=== PATIENT | female | born 1960 | race Caucasian/White ===

== ENCOUNTER 2019-06-21 16:16 | Inpatient (IN) | payer OTHER ==
[~2019-06-21] VITALS: Ht 167.6 cm; Wt 74.8 kg
[2019-06-21 16:00] VITALS: BP 145/93
--- NOTE | 2019-06-21 16:28 | NUR ---
MS RN OPENING NOTES RECEIVED PATIENT VIA NICOLASA ACCOMPANIED BY 2 EMT AND SIGNIFICANT OTHER DIRECT ADMIT TO UNIT FROM [facility] DUE TO C/O SOB AND CHEST PAIN FOR THE PAST 4 DAYS. ALERT AND ORIENTED X4. ON 02 @ 2L/MIN VIA DE ELINOR WELL. V/S FOLLOWS 145/93; HR:93; RR: 21; T:98.3 SPO2 OF 98%. ORIENTED PATIENT TO ROOM, CALL LIGHT. PATIENT WAS SEEN BY DR. CROWE AT BEDSIDE AND DISCUSSED ABOUT POSSIBLE PARACENTESIS WHICH PATIENT HAD IN THE PAST STATED BY PATIENT AND CONSENTS IF IT NEEDS TO BE DONE AGAIN. AMBULATORY WITH STEADY GAIT BUT WITH WEAKNESS OBSERVED. NO N/V. RIGHT AC SL #20 INTACT AND PATENT. ALL BELONGINGS ACCOUNTED FOR. BED IN LOWEST POSITION, LOCKED. CALL LIGHT WITHIN REACH.
[2019-06-21] MEDS ORDERED: ACETAMINOPHEN 325 MG TABLET PO PRN (17:00)
[2019-06-21] MEDS ORDERED: ONDANSETRON HCL/PF 4 MG/2 ML VIAL IVP PRN (17:00)
[2019-06-21] MEDS ORDERED: MAG HYDROX/AL HYDROX/SIMETH 30 ML UDC PO PRN (17:00)
[2019-06-21] MEDS ORDERED: MAGNESIUM HYDROXIDE 30 ML UDC PO PRN (17:00)
[2019-06-21] MEDS ORDERED: Z GUARD REMEDY 2 OZ OINT TP PRN (17:00)
[2019-06-21] MEDS: HYDROCODONE/APAP 5/325MG 1 EACH TABLET PO PRN ×2 (18:25→22:28)
--- NOTE | 2019-06-21 18:59 | NUR ---
MS RN CLOSING NOTES PATIENT RESTING COMFORTABLY IN BED WATCHING TV. DENIES ANY C/O PAIN NOR DISCOMFORT AT THIS TIME. DENIES ANY C/O N/V, SOB NOR CHEST PAIN. HOB ELEVATED. ABLE TO VERBALIZE NEEDS. CALL LIGHT WITHIN REACH. IN NO APPARENT DISTRESS.
[2019-06-21 19:00] LABS: BASOPHILS % (AUTO) 0.8 % (0.0-2.0); EOSINOPHILS % (AUTO) 3.8 % (0.0-6.0); HEMATOCRIT 33 % (33-45); HEMOGLOBIN 10.7 g/dL (11.5-14.8); LYMPHOCYTES # (AUTO) 1.2 /CMM (0.8-4.8); LYMPHOCYTES % (AUTO) 49.6 % (20.0-44.0); MEAN CORPUSCULAR HGB CONC 33 g/dl (31.0-36.0); MEAN CORPUSCULAR VOLUME 98 fL (82-100); MONOCYTES # (AUTO) 0.2 /CMM (0.1-1.30); MONOCYTES % (AUTO) 9.6 % (2.0-12.0); NEUTROPHILS # (AUTO) 0.9 /CMM (1.8-8.9); NEUTROPHILS % (AUTO) 36.2 % (43.0-81.0); RED BLOOD CELL COUNT(AUTO) 3.34 MIL/uL (4.0-5.2); WHITE BLOOD COUNT (AUTO) 2.4 K/uL (4.3-11.0)
[2019-06-21 19:02] LABS: PLATELET COUNT (AUTO) 33 /CMM (150-450)
--- NOTE | 2019-06-21 19:05 | NUR ---
NETWORK SUPPORT MANAGER OPENING NOTES RECEIVED PATIENT IN BED AWAKE ALERT AND ORIENTED X4, RESPIRATIONS EVEN AND UNLABORED WITH EQUAL RISE AND FALL OF CHEST ON 3L VIA NC, NO SOB PRESENT, ON MOTOR TEACHER SR 90,IV SITE TO RIGHT AC#20G INTACT AND PATENT NO REDNESS, NO INFILTRATION PRESENT, ORIENTED TO STAFF AND CALL LIGHT AND KEPT WITHIN REACH, SAFETY PRECAUTIONS IN PLACE ,LOW BED AND LOCKED, ALL NEEDS ATTENDED AT THIS TIME WILL CONTINUE TO MONITOR AND ATTEND TO NEEDS.
[2019-06-21 19:21] LABS: CALCIUM, SERUM 7.2 mg/dL (8.5-10.1); CREATININE 0.8 mg/dL (0.6-1.3); MAGNESIUM 1.3 mg/dL (1.8-2.4); PHOSPHORUS 2.6 mg/dL (2.5-4.9); POTASSIUM 3.6 mmol/L (3.5-5.1)
--- NOTE | 2019-06-21 19:33 | NUR ---
MS RN NOTES PATIENT REFUSED BODY ASSESSMENT AND PICTURES TO BE TAKEN.
[2019-06-21 19:34] LABS: BAND % (MANUAL) 6 % (0.0-5.0); EOSINOPHILS % (MANUAL) 4 % (0-4); LYMPHOCYTES % (MANUAL) 45 % (16-48); MONOCYTES % (MANUAL) 12 % (0-11.0); NEUTROPHILS % (MANUAL) 33 (42-76)
[2019-06-21] MEDS ORDERED: SECU150S SQ (19:37)
[2019-06-21] MEDS ORDERED: LACT10SO PO (19:40)
--- NOTE | 2019-06-21 19:56 | NUR ---
PAWN SHOP KEEPER NOTES MADE AWARE OF LABS RESULTED AND CRITICAL LAB VALUE PLT OF 33 AND MAG 1.3L NO FURTHER ORDERS AT THIS TIME, PATIENT MADE AWARE, PER PATIENT HAS A HISTORY OF LOW PLT LEVELS.
[2019-06-21 20:00] VITALS: BP 123/72
[2019-06-21] MEDS ORDERED: LACTULOSE 10 G/15 ML UDC (PYXIS) PO PRN (21:00)
--- NOTE | 2019-06-21 22:28 | NUR ---
COLLECTION DEVELOPMENT LIBRARIAN NOTES PATIENT COMPLAINT OF PAIN TO ABDOMEN AREA AND LEFT SIDE 8/10 ACHING REQUESTING FOR NORCO , PRN GIVEN ORDERED WILL CONTINUE TO MONITOR FOR EFFECTIVENESS.
[2019-06-22] VITALS: BP 114/80
[2019-06-22 04:00] VITALS: BP 147/85
[2019-06-22 05:00] VITALS: BP 147/85
[2019-06-22] MEDS: HYDROCODONE/APAP 5/325MG 1 EACH TABLET PO PRN ×3 (05:56→20:56)
--- NOTE | 2019-06-22 05:57 | NUR ---
BUSINESS JOB TITLES NOTES PATIENT COMPLAINT OF PAIN TO ABDOMEN AREA AND LEFT SIDE WHEN AMBULATING WELL 04/29 ACHING REQUESTING FOR NORCO , PRN GIVEN ORDERED WILL CONTINUE TO MONITOR FOR EFFECTIVENESS.
--- NOTE | 2019-06-22 06:39 | NUR ---
DISTILLERY MANAGER CLOSING NOTES PATIENT IN BED AWAKE ALERT AND ORIENTED X4, RESPIRATIONS EVEN AND UNLABORED WITH EQUAL RISE AND FALL OF CHEST ON 3L VIA NC, NO SOB PRESENT, ON OCEAN EXPORT AGENT SR 83,IV SITE TO RIGHT AC#20G INTACT AND PATENT NO REDNESS, NO INFILTRATION PRESENT, CALL LIGHT KEPT WITHIN REACH, SAFETY PRECAUTIONS IN PLACE ,LOW BED AND LOCKED, ALL NEEDS ATTENDED AT THIS TIME WILL CONTINUE TO MONITOR AND ATTEND TO NEEDS AND ENDORSE TO NEXT SHIFT.
[2019-06-22 07:26] LABS: HEMATOCRIT 30 % (33-45); HEMOGLOBIN 9.9 g/dL (11.5-14.8); LYMPHOCYTES # (AUTO) 1.2 /CMM (0.8-4.8); LYMPHOCYTES % (AUTO) 55.8 % (20.0-44.0); MEAN CORPUSCULAR HGB CONC 33 g/dl (31.0-36.0); MEAN CORPUSCULAR VOLUME 98 fL (82-100); MONOCYTES # (AUTO) 0.2 /CMM (0.1-1.30); MONOCYTES % (AUTO) 9.7 % (2.0-12.0); NEUTROPHILS # (AUTO) 0.6 /CMM (1.8-8.9); NEUTROPHILS % (AUTO) 27.5 % (43.0-81.0); RED BLOOD CELL COUNT(AUTO) 3.08 MIL/uL (4.0-5.2); WHITE BLOOD COUNT (AUTO) 2.1 K/uL (4.3-11.0)
[2019-06-22 07:38] LABS: CALCIUM, SERUM 7.1 mg/dL (8.5-10.1); CREATININE 0.8 mg/dL (0.6-1.3); MAGNESIUM 1.4 mg/dL (1.8-2.4); PHOSPHORUS 2.6 mg/dL (2.5-4.9); PLATELET COUNT (AUTO) 29 /CMM (150-450); POTASSIUM 3.5 mmol/L (3.5-5.1)
--- NOTE | 2019-06-22 07:46 | NUR ---
FILTER CLOTH MAKER NOTES RECEIVED CALL FROM LAB C/O DEISY, RELAYED PLT 29 LOW AND MAG 1.[address] CROWE WITH NO NEW ORDER AT THIS TIME
--- NOTE | 2019-06-22 07:49 | NUR ---
INGREDIENT MIXER OPENING NOTES RECEIVED PATIENT IN BED ALERT AND AWAKE ORIENTED X4. PATIENT STATES DID NOT SLEEP WELL LAST NIGHT. AMBULATORY WITH STEADY GAIT. PATIENT RECEIVED PAIN MED GIVEN BY NOC SHIFT AND EFFECTIVE PER PATIENT. BED IN LOWEST POSITION, LOCKED. CALL LIGHT WITHIN REACH. ABLE TO VERBALIZE NEEDS.
[2019-06-22 08:00] VITALS: BP 142/86
--- NOTE | 2019-06-22 08:05 | NUR ---
CUTTING INSPECTOR NOTES PATIENT SEEN BY DR. CROWE. PER MD, PATIENT CAN EAT PRIOR TO PARACENTESIS AND WITH ORDER FOR RESTORIL 15 MG PRN FOR INSOMNIA NOTED AND CARRIED OUT.
[2019-06-22 09:06] LABS: EOSINOPHILS % (MANUAL) 8 % (0-4); LYMPHOCYTES % (MANUAL) 62 % (16-48); MONOCYTES % (MANUAL) 6 % (0-11.0); NEUTROPHILS % (MANUAL) 24 (42-76)
--- NOTE | 2019-06-22 11:07 | NUR ---
EMBEDDED SYSTEMS SOFTWARE ENGINEER NOTES PATIENT OFF UNIT FOR CT SCAN
[2019-06-22] MEDS: Magnesium 1GM/D5W 100ML PREMIX 100 ML IV SCH ×4 (11:36→16:18)
[2019-06-22] MEDS ORDERED: FUROSEMIDE 40 MG/4 ML VIAL IV ONE (12:30)
[2019-06-22 16:00] VITALS: BP 122/83
--- NOTE | 2019-06-22 18:51 | NUR ---
MS RN CLOSING NOTES PATIENT IN BED ALERT AND AWAKE ORIENTED X4 WATCHING TV WITH SPOUSE AT BEDSIDE. DENIES ANY C/O PAIN NOR DISCOMFORT AT THIS TIME. NO SOB. AMBULATORY WITH STEADY GAIT. LT HAND SL # 22 INTACT AND PATENT. ABD REMIANS DISTENDED, SOFT AND NON-TENDER. BED IN LOWEST POSITION, LOCKED. CALL LIGHT WITHIN REACH. IN NO APPARENT DISTRESS..
--- NOTE | 2019-06-22 19:00 | NUR ---
MS RN OPENING NOTES NOTES Received patient A/O x4, awake, on Adair's position on bed. On O2 inhalation via NC @ 2LPM, saturating well, no SOB/respiratory distress noted. With significant others at bedside. Patient denies any discomfort at this time. Discussed POC, patient claimed she will just call for her bedtime and pain reliever pills. Kept on bed clean, dry and comfortable. Call light within easy reach. On fall precautions. Will continue to monitor accordingly.
[2019-06-22 20:00] VITALS: BP 142/74
[2019-06-22] MEDS: TEMAZEPAM 15 MG CAPSULE PO PRN (22:44)
[2019-06-23] VITALS (13 sets, daily range): BP systolic 102–142; BP diastolic 52–88
--- NOTE | 2019-06-23 06:28 | NUR ---
MS RN CLOSING NOTES Patient asleep, easily awaken. No new complaints made, no new unusualities noted. . All nursing needs attended. Due meds given as ordered. Kept on bed clean, dry and comfortable. Call light within easy reach. Endorsed to the next shift.
[2019-06-23 06:30] LABS: BASOPHILS % (AUTO) 0.7 % (0.0-2.0); EOSINOPHILS % (AUTO) 5.1 % (0.0-6.0); HEMATOCRIT 29 % (33-45); HEMOGLOBIN 9.6 g/dL (11.5-14.8); LYMPHOCYTES # (AUTO) 1.2 /CMM (0.8-4.8); LYMPHOCYTES % (AUTO) 54.4 % (20.0-44.0); MEAN CORPUSCULAR HGB CONC 33 g/dl (31.0-36.0); MEAN CORPUSCULAR VOLUME 97 fL (82-100); MONOCYTES # (AUTO) 0.2 /CMM (0.1-1.30); MONOCYTES % (AUTO) 10.5 % (2.0-12.0); NEUTROPHILS # (AUTO) 0.6 /CMM (1.8-8.9); NEUTROPHILS % (AUTO) 29.3 % (43.0-81.0); RED BLOOD CELL COUNT(AUTO) 2.96 MIL/uL (4.0-5.2); WHITE BLOOD COUNT (AUTO) 2.1 K/uL (4.3-11.0)
[2019-06-23 06:45] LABS: CALCIUM, SERUM 7.4 mg/dL (8.5-10.1); CREATININE 0.7 mg/dL (0.6-1.3); POTASSIUM 3.2 mmol/L (3.5-5.1)
[2019-06-23 06:52] LABS: PLATELET COUNT (AUTO) 28 /CMM (150-450)
[2019-06-23] MEDS ORDERED: POTASSIUM CHLORIDE 20 MEQ TAB.PRT.SR PO ONE (08:30)
[2019-06-23 08:38] LABS: EOSINOPHILS % (MANUAL) 4 % (0-4); LYMPHOCYTES % (MANUAL) 60 % (16-48); MONOCYTES % (MANUAL) 8 % (0-11.0); NEUTROPHILS % (MANUAL) 28 (42-76)
[2019-06-23] MEDS: LACTULOSE 10 G/15 ML UDC (PYXIS) PO SCH ×2 (09:22→18:32)
[2019-06-23] MEDS: HYDROCODONE/APAP 5/325MG 1 EACH TABLET PO PRN ×2 (10:55→20:40)
--- NOTE | 2019-06-23 15:08 | NUR ---
LOW PLATLET COUNT, US GUIDED THORACENTESIS TEMPORARILY ON HOLD UNTIL PATIENT RECEIVES TRANSFUSION. RN WILL INFORM.
--- NOTE | 2019-06-23 19:07 | NUR ---
patient resting in bed, awake A/o x4 . Platelets 2 units transfused , VS are stable and patient on room air tolerating well. All needs attended. IV assess remains intact and patent, flushing well. Patient ambulatory, steady gait. Will endorse to next shift for MARIMAR.
[2019-06-23] MEDS ORDERED: PHYTONADIONE INJ 10 MG/1 ML AMPUL SQ ONE (19:30)
--- NOTE | 2019-06-23 19:30 | NUR ---
MS RN OPENING NOTE RECEIVED PATIENT IN BED. A/OX4. TOLERATING ROOM AIR. RESPIRATIONS ARE EVEN AND UNLABORED. NO SOB NOTED. DENIES PAIN AT THIS TIME. IN NO APPARENT DISTRESS. IV ACCESS IN LEFT HANG #22 PATENT AND SALINE LOCKED. BED IS LOW AND LOCKED, SIDE RAILS UP, HOB ELEVATED 80 DEGREES. CALL LIGHT WITHIN REACH. FAMILY AT THE BEDSIDE. WILL CONTINUE TO MONITOR.
--- NOTE | 2019-06-23 20:40 | NUR ---
MS RN NOTE ADMINISTERED PRN NORCO 5/325 FOR PAIN 8/10 IN LEFT AND RIGHT POSTERIOR BACK/SIDE. WILL CONTINUE TO MONITOR.
[2019-06-23] MEDS: TEMAZEPAM 15 MG CAPSULE PO PRN (23:01)
--- NOTE | 2019-06-23 23:01 | NUR ---
MS RN NOTE ADMINISTERED PRN RESTORIL 15MD PER PATIENTS REQUEST FOR SLEEP. WILL CONTINUE TO MONITOR.
--- NOTE | 2019-06-24 06:32 | NUR ---
MS RN CLOSING NOTE PATIENT IN BED. A/OX4. REMAINS TOLERATING ROOM AIR. RESPIRATIONS ARE EVEN AND UNLABORED. SOB THROUGHOUT SHIFT. TITRATED OFF O2, NOW STABLE ON RA. C/O PAIN AND ADMINISTERED PRN NORCO. NO APPARENT DISTRESS THROUGHOUT. IV ACCESS MAINTAINED IN LEFT HANG #22 PATENT AND SALINE LOCKED. BED IS LOW AND LOCKED, SIDE RAILS UP, HOB ELEVATED 20 DEGREES. CALL LIGHT WITHIN REACH. WILL ENDORSE TO NEXT SHIFT FOR MARIMAR.
--- NOTE | 2019-06-24 07:03 | NUR ---
MS RN NOTES PATIENT IN BED ALERT ORIENTED X 4. NO ACUTE DISTRESS NOTED. BREATHING UNLABORED. NO SOB NOTED. IV ACCESS PATENT AND INTACT. NO REDNESS OR SWELLING NOTED. SAFETY MEASURES IN PLACE. CALL LIGHT WITHIN REACH. WILL CONTINUE TO MONITOR ACCORDINGLY.
[2019-06-24 07:47] LABS: BASOPHILS % (AUTO) 0.8 % (0.0-2.0); EOSINOPHILS % (AUTO) 4.5 % (0.0-6.0); HEMATOCRIT 28 % (33-45); HEMOGLOBIN 9.2 g/dL (11.5-14.8); LYMPHOCYTES # (AUTO) 0.8 /CMM (0.8-4.8); LYMPHOCYTES % (AUTO) 46.7 % (20.0-44.0); MEAN CORPUSCULAR HGB CONC 32 g/dl (31.0-36.0); MEAN CORPUSCULAR VOLUME 98 fL (82-100); MONOCYTES # (AUTO) 0.2 /CMM (0.1-1.30); MONOCYTES % (AUTO) 12.3 % (2.0-12.0); NEUTROPHILS # (AUTO) 0.6 /CMM (1.8-8.9); NEUTROPHILS % (AUTO) 35.7 % (43.0-81.0)
[2019-06-24 07:58] LABS: PLATELET COUNT (AUTO) 41 /CMM (150-450); WHITE BLOOD COUNT (AUTO) 1.8 K/uL (4.3-11.0)
[2019-06-24 08:00] VITALS: BP 109/67
--- NOTE | 2019-06-24 08:03 | NUR ---
MS RN NOTES LABORATORY TEST RESULTED INCLUDING WBC 1.8 AND PLATELET 41, DR CARLOS CROWE PRESENT AT THE FLOOR MADE AWARE, NO NEW ORDERS MADE AT THIS TIME.
[2019-06-24 08:05] LABS: ALBUMIN 2.1 g/dL (3.4-5.0); BILIRUBIN,DIRECT 1.1 mg/dL (0.0-0.2)
[2019-06-24 08:19] LABS: BILIRUBIN,TOTAL 1.9 mg/dL (0.2-1.0)
--- NOTE | 2019-06-24 08:27 | NUR ---
MS RN NOTES PATIENT SEEN AND EVALUATED BY DR CARLOS CROWE WITH NEW ORDERS FOR LASIX 20MG IV PUSH X1 DOSE, NOTED AND CARRIED OUT.
[2019-06-24 08:31] LABS: THYROID STIMULATING HORMONE 1.513 uIU/mL (0.358-3.74)
[2019-06-24 08:56] LABS: EOSINOPHILS % (MANUAL) 1 % (0-4); LYMPHOCYTES % (MANUAL) 47 % (16-48); MONOCYTES % (MANUAL) 5 % (0-11.0); NEUTROPHILS % (MANUAL) 47 (42-76)
[2019-06-24] MEDS: LACTULOSE 10 G/15 ML UDC (PYXIS) PO SCH ×2 (09:00→17:50)
[2019-06-24] MEDS ORDERED: FUROSEMIDE 40 MG/4 ML VIAL IV ONE (09:00)
[2019-06-24] MEDS: FOLIC ACID 1 MG TABLET PO SCH (09:00)
--- NOTE | 2019-06-24 09:00 | NUR ---
AT 9 AM PLT COUNT 41 , I SPOKE WITH THE CHARGE NURSE AND INFORMED HER THAT WE NEED AT LEAST 50 PLT, IN ORDER FOR THE PROCEDURE TO BE DONE, SHE WILL INFORM THE ORDERING MD
--- NOTE | 2019-06-24 10:00 | NUR ---
MS RN NOTES RECEIVED A CALL FROM RADIOLOGY THAT THORACENTESIS WILL NOT BE DONE TODAY DUE TO PLATELET LESS THAN 50, NOTIFIED DR CARLOS CROWE MADE AWARE, NO NEW ORDERS MADE AT THIS TIME.
--- NOTE | 2019-06-24 10:51 | NUR ---
MS RN NOTES CLARIFIED DIET ORDERS WITH CARLOS ABRAHAM, WITH NEW ORDERS TO DISCONTINUE NPO RESUME REGULAR DIET , NOTED AND CARRIED OUT.
[2019-06-24] MEDS: HYDROCODONE/APAP 5/325MG 1 EACH TABLET PO PRN ×2 (12:39→21:32)
[2019-06-24 16:00] VITALS: BP 132/78
--- NOTE | 2019-06-24 19:01 | NUR ---
MS RN NOTES PATIENT IN BED ALERT ORIENTED X 4. NO ACUTE DISTRESS NOTED. BREATHING UNLABORED. NO SOB NOTED. IV ACCESS PATENT AND INTACT, NO REDNESS OR SWELLING NOTED. DUE MEDICATIONS GIVEN, NO ASE NOTED. NEEDS ATTENDED AND ANTICIPATED. SAFETY MEASURES IN PLACE. CALL LIGHT WITHIN REACH. WILL ENDORSE TO NIGHT NURSE FOR CONTINUITY OF CARE.
--- NOTE | 2019-06-24 19:15 | NUR ---
MS RN NOTES RECEIVED LAYING COMFORTABLY ON BED,A/O X4,DENIES PAIN DISCOMFORTS,ABDOMEN DISTENDED,SALINE LOCK LEFT HAND #22 INTACT AND PATENT.VERBALIZED NEEDS. AT BEDSIDE.CALL LIGHT IN REACH,NEEDS ANTICIPATED.
[2019-06-24 20:00] VITALS: BP 125/72
--- NOTE | 2019-06-24 21:32 | NUR ---
MS RN NOTES PAIN MANAGEMENT C/O RIGHT UPPER QUADRANT PAIN 6/10 ON PAIN SCALE,NORCO 5/325MG,1 TAB PO GIVEN ORDERED FOR MODERATE PAIN
--- NOTE | 2019-06-24 21:33 | NUR ---
MS RN NOTES PATIENT CLAIMED,SHE ONLY GOT TWICE SINCE SHE WAS HERE,LACTULOSE 10GM PO GIVEN PER PATIENT REQUEST.WILL MONITOR FOR BM
[2019-06-24] MEDS: TEMAZEPAM 15 MG CAPSULE PO PRN (22:32)
--- NOTE | 2019-06-24 22:32 | NUR ---
MS RN NOTES C/O INSOMNIA,RESTORIL 15MG PO PER PATIENT REQUEST.
--- NOTE | 2019-06-25 06:29 | NUR ---
MS RN NOTES SLEEP WELL AT NIGHT WITH RESTORIL.PAIN MANAGEMENT EFFECTIVE.ABDOMEN REMAINS DISTENDED.NO SOB THRU OUT SHIFT.O2 SAT WITH IN NORMAL LIMITS.WILL ENDORSE TO DAY NURSE FOR MARIMAR
[2019-06-25 06:32] LABS: BASOPHILS % (AUTO) 0.7 % (0.0-2.0); HEMATOCRIT 29 % (33-45); HEMOGLOBIN 9.5 g/dL (11.5-14.8); LYMPHOCYTES # (AUTO) 1.2 /CMM (0.8-4.8); LYMPHOCYTES % (AUTO) 51.4 % (20.0-44.0); MEAN CORPUSCULAR HGB CONC 33 g/dl (31.0-36.0); MEAN CORPUSCULAR VOLUME 97 fL (82-100); MONOCYTES # (AUTO) 0.3 /CMM (0.1-1.30); MONOCYTES % (AUTO) 13.1 % (2.0-12.0); NEUTROPHILS # (AUTO) 0.7 /CMM (1.8-8.9); NEUTROPHILS % (AUTO) 30.8 % (43.0-81.0); RED BLOOD CELL COUNT(AUTO) 2.96 MIL/uL (4.0-5.2); WHITE BLOOD COUNT (AUTO) 2.3 K/uL (4.3-11.0)
[2019-06-25 06:54] LABS: PLATELET COUNT (AUTO) 42 /CMM (150-450)
--- NOTE | 2019-06-25 07:49 | NUR ---
ADDENDUM: DR CROWE AWARE OF LABORATORY RESULTS FROM TODAY INCLUDING PLATELET.
--- NOTE | 2019-06-25 07:49 | NUR ---
MS RN NOTES PATIENT SEEN AND EVALUATED BY DR CARLOS CROWE WITH NEW ORDERS MADE FOR MAGNESIUM CITRATE 296ML PO X 1 DOSE , NOTED AND CARRIED OUT.
[2019-06-25 08:00] VITALS: BP 129/76
[2019-06-25] MEDS ORDERED: MAGNESIUM CITRATE 296 ML BOTTLE PO ONE (08:00)
[2019-06-25 08:09] LABS: BAND % (MANUAL) 2 % (0.0-5.0); EOSINOPHILS % (MANUAL) 3 % (0-4); LYMPHOCYTES % (MANUAL) 55 % (16-48); MONOCYTES % (MANUAL) 9 % (0-11.0); NEUTROPHILS % (MANUAL) 31 (42-76)
[2019-06-25] MEDS: FOLIC ACID 1 MG TABLET PO SCH (09:25)
[2019-06-25] MEDS: LACTULOSE 10 G/15 ML UDC (PYXIS) PO SCH ×2 (09:25→17:42)
[2019-06-25] MEDS: HYDROCODONE/APAP 5/325MG 1 EACH TABLET PO PRN ×2 (09:27→20:06)
[2019-06-25 16:00] VITALS: BP 136/76
--- NOTE | 2019-06-25 18:53 | NUR ---
MS WU JOSEPH NOTES PATIENT IN BED ALERT ORIENTED X 4. NO ACUTE DISTRESS NOTED. BREATHING UNLABORED. NO SOB NOTED. IV ACCESS PATENT AND INTACT, NO REDNESS OR SWELLING NOTED. DUE MEDICATIONS GIVEN, NO ASE NOTED. NEEDS ATTENDED AND ANTICIPATED. SAFETY MEASURES IN PLACE. CALL LIGHT WITHIN REACH. WILL ENDORSE TO NIGHT NURSE FOR CONTINUITY OF CARE.
--- NOTE | 2019-06-25 19:40 | NUR ---
MS RN NOTES RECEIVED PATIENT IN BED ALERT ORIENTED X 4. NO ACUTE DISTRESS NOTED. BREATHING UNLABORED. NO SOB NOTED. IV ACCESS PATENT AND INTACT. NO REDNESS OR SWELLING NOTED. SAFETY MEASURES IN PLACE. CALL LIGHT WITHIN REACH. ALL NEEDS ANTICIPATED. WILL CONTINUE TO MONITOR ACCORDINGLY.
[2019-06-25 20:00] VITALS: BP 127/78
[2019-06-25] MEDS: TEMAZEPAM 15 MG CAPSULE PO PRN (22:06)
[2019-06-26] VITALS (8 sets, daily range): BP systolic 117–137; BP diastolic 70–79
--- NOTE | 2019-06-26 07:32 | NUR ---
RN NOTES ALL NEEDS ATTENDED. ABLE TO REST AND SLEPT AT INTERVALS, ENDORSED TO AM NURSE TO FOLLOW UP LAB RESULT, FOR CONTINUITY OF CARE.
--- NOTE | 2019-06-26 08:00 | NUR ---
m/s plant packer: notes consent obtained from pt re: us guided thoracentesis. pt verbalized understanding of procedure. will continue to monitor.
--- NOTE | 2019-06-26 08:09 | NUR ---
AT 8.OO AM INFORMED RN ABOUT LOW PLATELETS, WAITING FOR NEW LABS IN ORDER FOR THE THORACENTESIS TO BE DONE
[2019-06-26] MEDS: FOLIC ACID 1 MG TABLET PO SCH (08:36)
[2019-06-26] MEDS: LACTULOSE 10 G/15 ML UDC (PYXIS) PO SCH ×2 (08:38→17:01)
[2019-06-26 08:52] LABS: BASOPHILS % (AUTO) 1.1 % (0.0-2.0); EOSINOPHILS % (AUTO) 4.4 % (0.0-6.0); HEMATOCRIT 31 % (33-45); LYMPHOCYTES # (AUTO) 0.8 /CMM (0.8-4.8); LYMPHOCYTES % (AUTO) 38.3 % (20.0-44.0); MEAN CORPUSCULAR HGB CONC 33 g/dl (31.0-36.0); MEAN CORPUSCULAR VOLUME 98 fL (82-100); MONOCYTES # (AUTO) 0.3 /CMM (0.1-1.30); MONOCYTES % (AUTO) 14.7 % (2.0-12.0); NEUTROPHILS # (AUTO) 0.8 /CMM (1.8-8.9); NEUTROPHILS % (AUTO) 41.5 % (43.0-81.0); RED BLOOD CELL COUNT(AUTO) 3.13 MIL/uL (4.0-5.2)
[2019-06-26 08:57] LABS: PLATELET COUNT (AUTO) 39 /CMM (150-450)
--- NOTE | 2019-06-26 09:00 | NUR ---
m/s chucker: notes dr. singer notified and made aware of platelet=39, to go ahead with 2 units of platelet as ordered earlier. goldy ([employer]) aware and spoke to her radiologist and okay with thoracentesis after transfusion.
[2019-06-26 09:57] LABS: BAND % (MANUAL) 1 % (0.0-5.0); EOSINOPHILS % (MANUAL) 9 % (0-4); LYMPHOCYTES % (MANUAL) 29 % (16-48); MONOCYTES % (MANUAL) 11 % (0-11.0); NEUTROPHILS % (MANUAL) 50 (42-76)
[2019-06-26] MEDS: HYDROCODONE/APAP 5/325MG 1 EACH TABLET PO PRN (10:25)
--- NOTE | 2019-06-26 10:25 | NUR ---
m/s industrial psychology professor: notes c/o 8/10 lower back pain, medicated with norco 5/325mg po 1 tab as ordered. instructed to call for assistance. still awaiting for platelet units. pt aware.
--- NOTE | 2019-06-26 10:55 | NUR ---
m/s wash house supervisor: notes f/u made to blood bank, spoke to marisol and informed me that it's not there yet and will call me once they receive the platelet as stated.
--- NOTE | 2019-06-26 12:05 | NUR ---
m/s advanced manufacturing associate: notes f/u made to blood bank and informed me that they will f/u with again at [facility] and will call me once platelet is there. pt made aware.
--- NOTE | 2019-06-26 13:19 | NUR ---
m/s physics professor: notes 1 unit of platelet started at this time. vss, afebrile.
--- NOTE | 2019-06-26 13:34 | NUR ---
m/s forcer maker: notes no a/r noted after 15mins of transfusion. vss. afebrile. will monitor.
--- NOTE | 2019-06-26 13:50 | NUR ---
m/s pediatric speech therapist: notes 1 unit of platelet completed without a/r noted. vss.
--- NOTE | 2019-06-26 13:54 | NUR ---
m/s senior information security analyst: notes 2 unit of platelet given. vss. pt for us guided thoracentesis after transfusion. tech at bedside, awaiting for radiologist.
--- NOTE | 2019-06-26 14:15 | NUR ---
m/s duct maker: notes 2 unit of platelet completed without a/r noted. vss.
--- NOTE | 2019-06-26 14:20 | NUR ---
m/s residential service technician: notes us tech with radiologist at bedside and performing us guided thoracentesis at this time.
--- NOTE | 2019-06-26 14:45 | NUR ---
m/s chief of staff doctor: notes us guided thoracentesis completed with 1.5 liters of clear yellow fluid were drained at the end of the procedure. The patient tolerated the procedure well. The specimen was sent for laboratory evaluation. chest x-ray ordered.
--- NOTE | 2019-06-26 15:25 | NUR ---
m/s sugar chipper machine operator: notes pt c/o right side pain including her right shoulder and back, stated, "something like punching me." vital signs taken: b/p 126/76, hr 89, rr 18, satting at 97% on ra and afebrile 98.3. dr. singer made aware and just have her rest and if she feels better she can go home. pt appears to be anxious/nervous. encouraged to verbalized feelings. pt made aware and wants to go home tonight as stated.
--- NOTE | 2019-06-26 16:30 | NUR ---
m/s die storage worker: notes pt feeling much better as stated and wants to go home later, but wants me to the doctor later for discharge order. h/l removed to left hand per request with tip intact. instructed to call for assistance.
[2019-06-26] MEDS ORDERED: SPIR25TA6 PO (17:33)
--- NOTE | 2019-06-26 17:35 | NUR ---
m/s clinical esthetician: notes pt feeling much better now and wants to go home. dr. singer notified and made aware and will put in the order. pt made aware. pt wants to go in the next hour.
--- NOTE | 2019-06-26 18:10 | NUR ---
m/s rigoberto: cheikh'henry instructions discharged instruction with e scripts given to pt and verbalized understanding. h/l removed to right ac with tip intact. med teaching provided and verbalized understanding. belongings returned to pt. awaiting for to pick her up. instructed to call for assistance. Addendum: 06/26/19 at 1833 by REKHA CHIU LVN pt refused discharge photos on psoriasis on chest area.
--- NOTE | 2019-06-26 18:30 | NUR ---
m/s route rider supervisor: notes offered flu vaccine prior to discharge, but pt decline and wants to have it at [facility] or [facility]. pt getting ready and awaiting for to come get her.
--- NOTE | 2019-06-26 18:55 | NUR ---
m/s embalmer assistant: discharged discharged home in stable condition with all d'c papers and valuables accompanied by .
== END 2019-06-26 18:55 | disposition home or self-care (01) | DRG 194 ==
LOC: TELE 16:16 → MED 06-22 08:39
PROVIDERS: ADMIT Internal Medicine; ATTEND Internal Medicine
PROC: 30233P1 Transfusion of Nonautologous Frozen Red Cells into Peripheral Vein, Percutaneous Approach (ICD-10-PCS; principal; 2019-06-23)
PROC: 0W993ZZ Drainage of Right Pleural Cavity, Percutaneous Approach (ICD-10-PCS; 2019-06-26)
DX: I50.33 Acute on chronic diastolic (congestive) heart failure (principal); J96.01 Acute respiratory failure with hypoxia; D61.818 Other pancytopenia; E44.0 Moderate protein-calorie malnutrition; D68.9 Coagulation defect, unspecified; J90 Pleural effusion, not elsewhere classified; I27.20 Pulmonary hypertension, unspecified; K76.6 Portal hypertension; L40.9 Psoriasis, unspecified; F17.210 Nicotine dependence, cigarettes, uncomplicated; J98.11 Atelectasis; K70.31 Alcoholic cirrhosis of liver with ascites; K80.20 Calculus of gallbladder without cholecystitis without obstruction; D73.1 Hypersplenism; F10.21 Alcohol dependence, in remission; I25.10 Atherosclerotic heart disease of native coronary artery without angina pectoris; Z68.26 Body mass index [BMI] 26.0-26.9, adult
CPT/HCPCS: 36415; 71045-TC; 71250-TC; 76700-TC; 76942-TC; 80048-TC; 80076-TC; 82728-TC; 83540-TC; 83735-TC; 84100-TC; 84443-TC; 85025-TC; 85610-TC; 85730-TC; 86850-TC; 87070-TC; 87075-TC; 87081-TC; 87102-TC; 89051-TC; 93307-TC; 97116-TC; 97530-TC; G0378; J1940; J2405; J3430; J3475; P9016-BL; P9034-BL

== ENCOUNTER 2019-07-17 00:32 | Emergency (ER) | payer OTHER ==
[~2019-07-17] VITALS: Ht 167.6 cm; Wt 74.8 kg
[~2019-07-17 00:32] MED LIST: LACT10SO PO; SECU150S SQ; SPIR25TA6 PO
--- NOTE | 2019-07-17 00:35 | NUR ---
PT BIBSELF C/O CHEST DISCOMFORT AND SOB X3-4 DAYS, PROGRESSIVELY GETTING WORSE WITHIN LAST FEW HOURS. PT AAOX4. APPEARS UNCOMFORTABLE. RESPIRATIONS EVEN AND UNLABORED. O2 SAT 100% ON ROOM AIR. PLACED IN GOWN AND ON MONITOR. WILL CONTINUE TO MONITOR
--- NOTE | 2019-07-17 01:05 | NUR ---
PT REFUSING SALINE LOCK, XRAY, EKG. ER AWARE
--- NOTE | 2019-07-17 01:46 | NUR ---
IV LINE IBTAINED IN L WRIST 20G. BLOOD DRAWN AND SENT TO LAB
[2019-07-17 02:01] LABS: CALCIUM, SERUM 7.7 mg/dL (8.5-10.1); CARBON DIOXIDE 24 mmol/L (21-32); CHLORIDE 114 mmol/L (98-107); CREATININE 0.7 mg/dL (0.6-1.3); GLUCOSE 104 mg/dL (74-106); POTASSIUM 3.5 mmol/L (3.5-5.1); SODIUM SERUM 147 mmol/L (136-145); UREA NITROGEN, BLOOD 9 mg/dL (7-18)
[2019-07-17 02:05] LABS: BASOPHILS % (AUTO) 1.3 % (0.0-2.0); EOSINOPHILS % (AUTO) 4.6 % (0.0-6.0); HEMATOCRIT 32 % (33-45); HEMOGLOBIN 10.4 g/dL (11.5-14.8); LYMPHOCYTES # (AUTO) 1.6 /CMM (0.8-4.8); LYMPHOCYTES % (AUTO) 54.9 % (20.0-44.0); MEAN CORPUSCULAR HGB CONC 33 g/dl (31.0-36.0); MEAN CORPUSCULAR VOLUME 95 fL (82-100); MONOCYTES # (AUTO) 0.3 /CMM (0.1-1.30); MONOCYTES % (AUTO) 11.1 % (2.0-12.0); NEUTROPHILS # (AUTO) 0.8 /CMM (1.8-8.9); NEUTROPHILS % (AUTO) 28.1 % (43.0-81.0); RED BLOOD CELL COUNT(AUTO) 3.33 MIL/uL (4.0-5.2)
[2019-07-17 02:09] LABS: ALANINE AMINOTRANSFERASE 26 U/L (12-78); ALBUMIN 2.5 g/dL (3.4-5.0); ALKALINE PHOSPHATASE 152 U/L (46-116); ASPARTATE AMINOTRANSFERASE 89 U/L (15-37); B-TYPE NATRIURETIC PEPTIDE 30 PG/ML (0-125); BILIRUBIN,TOTAL 1.3 mg/dL (0.2-1.0); TOTAL PROTEIN, SERUM 7.4 g/dL (6.4-8.2)
[2019-07-17 02:39] LABS: PLATELET COUNT (AUTO) 36 /CMM (150-450)
--- NOTE | 2019-07-17 03:10 | NUR ---
IV removed. Catheter intact and site benign. Pressure and 4x4 applied to site. No bleeding noted. Patient discharged to home in stable condition. Written and verbal after care instructions given. Patient verbalizes understanding of instruction.
[2019-07-17 03:11] VITALS: BP 133/91
[2019-07-17 05:26] LABS: EOSINOPHILS % (MANUAL) 3 % (0-4); NEUTROPHILS % (MANUAL) 20 (42-76)
[2019-07-17 05:27] LABS: LYMPHOCYTES % (MANUAL) 69 % (16-48); MONOCYTES % (MANUAL) 8 % (0-11.0)
== END 2019-07-17 03:20 | disposition home or self-care (01) ==
LOC: ER 00:35
DX: K70.9 Alcoholic liver disease, unspecified (principal); F10.129 Alcohol abuse with intoxication, unspecified; R06.00 Dyspnea, unspecified; D69.6 Thrombocytopenia, unspecified; R45.6 Violent behavior; I10 Essential (primary) hypertension; Z98.890 Other specified postprocedural states; Z88.1 Allergy status to other antibiotic agents; Z88.8 Allergy status to other drugs, medicaments and biological substances; Z91.013 Allergy to seafood; Z79.899 Other long term (current) drug therapy; Y90.8 Blood alcohol level of 240 mg/100 ml or more
CPT/HCPCS: 36415; 71045-TC; 80048-TC; 80076-TC; 83880; 84484-TC; 85025-TC; 85730-TC; G0480